=== PATIENT | male | born 1960 | race Caucasian/White ===

== ENCOUNTER 2021-10-28 14:47 | Day surgery (SDC) | payer MEDICARE, OTHER ==
[2021-10-27 11:31] LABS: BASOPHILS % (AUTO) 0.5 % (0-1); EOSINOPHILS # (AUTO) 0.2 X10'3 (0-0.9); EOSINOPHILS % (AUTO) 2.7 % (0-6); HEMATOCRIT 44.4 % (42.0-52.0); HEMOGLOBIN 14.8 g/dl (14.0-17.9); LYMPHOCYTES # (AUTO) 2.3 X10'3 (1.1-4.8); LYMPHOCYTES % (AUTO) 25.1 % (21-51); MEAN CORPUSCULAR HEMOGLOBIN 31.2 PG (27.0-31.0); MEAN CORPUSCULAR HGB CONC 33.3 g/dL (33.0-36.5); MEAN CORPUSCULAR VOLUME 93.7 FL (78-98); MEAN PLATELET VOLUME 8.1 FL (7.4-10.4); MONOCYTES # (AUTO) 0.8 X10'3 (0-0.9); MONOCYTES % (AUTO) 9.1 % (2-12); NEUTROPHILS # (AUTO) 5.8 X10'3 (1.8-7.7); NEUTROPHILS % (AUTO) 62.6 % (42-75); PLATELET COUNT 327 X10'3 (140-440); RED BLOOD COUNT 4.74 X10'6 (4.70-6.10); RED CELL DISTRIBUTION WIDTH 14.5 % (11.5-14.5); WHITE BLOOD COUNT 9.3 X10'3 (4.5-11.0)
[2021-10-27 11:33] LABS: ALBUMIN 3.4 G/DL (3.4-5.0); ANION GAP 13 (8-16); BLOOD UREA NITROGEN 25 MG/DL (7-18); BUN/CREATININE RATIO 20.3 (5.4-32.0); CALCIUM 9.2 MG/DL (8.5-10.1); CHLORIDE 105 MMOL/L (99-107); CREATININE 1.23 MG/DL (0.60-1.10); GLUCOSE 144 MG/DL (70-104); POTASSIUM 4.3 MMOL/L (3.5-5.1); SODIUM 145 MMOL/L (135-145); TOTAL CARBON DIOXIDE 27.2 MMOL/L (24-32); eGFR 59 ML/MIN
[2021-10-27 11:38] LABS: APTT 24 SECONDS (22-32)
[2021-10-28] VITALS (7 sets, daily range): BP systolic 112–147; BP diastolic 62–88
[~2021-10-28] VITALS: Ht 180.3 cm; Wt 110.4 kg
[~2021-10-28 14:47] MED LIST: ALBU8.5H17 IH; ATOR20TA PO; FURO-149 PO; LOSA25TA96 PO; TIOT18CA3 INH
[2021-10-28] MEDS ORDERED: CARV-49 PO (15:28)
[2021-10-28] MEDS ORDERED: ASPI-1265 PO (15:28)
[2021-10-28] MEDS ORDERED: FURO-149 PO (15:33)
[2021-10-28] MEDS ORDERED: POTA-207 PO (15:35)
[2021-10-28] MEDS ORDERED: normal saline 1,000 ML IV SCH (16:05)
[2021-10-28] MEDS ORDERED: diphenhydrAMINE 25mg capsule PO PRN (16:05)
[2021-10-28] MEDS ORDERED: LORazepam 0.5 MG tablet PO PRN (16:05)
[2021-10-28] MEDS ORDERED: LIDOcaine 1% (10mg/ml)w/preservative injection 20ml MDV ONE (17:26)
[2021-10-28] MEDS ORDERED: midazolam 1 mg/ML 2ml injection ONE (17:26)
[2021-10-28] MEDS ORDERED: fentaNYL/PF 50MCG/1 ML 2ML syringe ONE (17:26)
[2021-10-28] MEDS ORDERED: iohexol 350MG/ML 100ml bottle IV ONE (17:27)
[2021-10-28] MEDS ORDERED: iohexol 350 MG/ML 50ML vial IV ONE (18:13)
== END 2021-10-28 20:25 | disposition home or self-care (01) ==
LOC: SSTAY O 14:47
PROVIDERS: ATTEND Internal Medicine Interventional Cardiology
DX: R94.39 Abnormal result of other cardiovascular function study (principal); R07.89 Other chest pain; I25.10 Atherosclerotic heart disease of native coronary artery without angina pectoris; J44.9 Chronic obstructive pulmonary disease, unspecified; I25.2 Old myocardial infarction; I25.5 Ischemic cardiomyopathy; I11.0 Hypertensive heart disease with heart failure; I50.9 Heart failure, unspecified; E78.5 Hyperlipidemia, unspecified; Z79.01 Long term (current) use of anticoagulants; Z79.899 Other long term (current) drug therapy; Z87.891 Personal history of nicotine dependence; Z95.1 Presence of aortocoronary bypass graft
CPT/HCPCS: 36415; 80048; 85025; 85610; 85730; 93005; 93459; 99152; 99153; C1760; C1769; J1644; J2250; J3010; J3490; Q0163; Q9967; A4620; A6258

== ENCOUNTER 2022-05-05 18:46 | Emergency (ER) | payer MEDICARE, MEDICAID ==
[~2022-05-05] VITALS: Ht 177.8 cm; Wt 100.0 kg
[~2022-05-05 18:46] MED LIST changes: +ASPI-1265 PO; +CARV-49 PO; +POTA-207 PO
[2022-05-05 19:03] VITALS: BP 148/71
[2022-05-05 19:24] LABS: BASOPHILS # (AUTO) 0.1 X10'3 (0-0.2); BASOPHILS % (AUTO) 0.5 % (0-1); EOSINOPHILS # (AUTO) 0.5 X10'3 (0-0.9); EOSINOPHILS % (AUTO) 4.1 % (0-6); HEMATOCRIT 46.5 % (42.0-52.0); HEMOGLOBIN 15.3 g/dl (14.0-17.9); LYMPHOCYTES # (AUTO) 2.2 X10'3 (1.1-4.8); LYMPHOCYTES % (AUTO) 18.8 % (21-51); MEAN CORPUSCULAR HGB CONC 32.8 g/dL (33.0-36.5); MEAN CORPUSCULAR VOLUME 94.5 FL (78-98); MEAN PLATELET VOLUME 7.8 FL (7.4-10.4); MONOCYTES # (AUTO) 0.9 X10'3 (0-0.9); MONOCYTES % (AUTO) 7.4 % (2-12); NEUTROPHILS # (AUTO) 8.1 X10'3 (1.8-7.7); NEUTROPHILS % (AUTO) 69.2 % (42-75); PLATELET COUNT 316 X10'3 (140-440); RED BLOOD COUNT 4.93 X10'6 (4.70-6.10); RED CELL DISTRIBUTION WIDTH 15.5 % (11.5-14.5); WHITE BLOOD COUNT 11.7 X10'3 (4.5-11.0)
[2022-05-05 19:36] LABS: ALANINE AMINOTRANSFERASE 23 U/L (12-78); ALBUMIN 3.3 G/DL (3.4-5.0); ALBUMIN/GLOBULIN RATIO 0.7 (1.1-1.5); ALKALINE PHOSPHATASE 121 IU/L (46-116); ANION GAP 10 (8-16); ASPARTATE AMINO TRANSFERASE 17 U/L (10-37); BILIRUBIN,TOTAL 0.2 MG/DL (0.1-1.0); BLOOD UREA NITROGEN 26 MG/DL (7-18); CALCIUM 8.9 MG/DL (8.5-10.1); CHLORIDE 104 MMOL/L (99-107); CREATININE 1.18 MG/DL (0.60-1.10); GLUCOSE 148 MG/DL (70-104); POTASSIUM 4.3 MMOL/L (3.5-5.1); SODIUM 139 MMOL/L (135-145); TOTAL CARBON DIOXIDE 25.4 MMOL/L (24-32); TOTAL PROTEIN 7.9 G/DL (6.4-8.2); eGFR 62 ML/MIN
== END 2022-05-06 01:31 | disposition left against medical advice (07) ==
LOC: ER 18:47
DX: R07.9 Chest pain, unspecified (principal); M54.2 Cervicalgia; Z53.21 Procedure and treatment not carried out due to patient leaving prior to being seen by health care provider
CPT/HCPCS: 36415; 71045; 80053; 83880; 84484; 85025; 93005

== ENCOUNTER 2024-03-10 23:33 | Inpatient (IN) | payer MEDICARE, OTHER ==
[~2024-03-10] VITALS: Ht 175.3 cm; Wt 116.0 kg
[~2024-03-10 23:33] MED LIST changes: +LOSA-415 PO; -LOSA25TA96 PO
[2024-03-10] MEDS: aspirin 81mg tab.chew PO ONE (23:55)
[2024-03-11] VITALS (14 sets, daily range): BP systolic 104–115; BP diastolic 50–67; PULSE 62–92; RESP 15–20; TEMP 97.1–97.8; O2SAT 93–97
[2024-03-11 00:15] LABS: BASOPHILS # (AUTO) 0.1 X10'3 (0-0.2); BASOPHILS % (AUTO) 0.6 % (0-1); EOSINOPHILS # (AUTO) 0.3 X10'3 (0-0.9); EOSINOPHILS % (AUTO) 2.4 % (0-6); HEMATOCRIT 45.2 % (42.0-52.0); HEMOGLOBIN 15.3 g/dl (14.0-17.9); LYMPHOCYTES # (AUTO) 4.1 X10'3 (1.1-4.8); LYMPHOCYTES % (AUTO) 36.5 % (21-51); MEAN CORPUSCULAR HEMOGLOBIN 32.7 PG (27.0-31.0); MEAN CORPUSCULAR HGB CONC 33.8 g/dL (33.0-36.5); MEAN CORPUSCULAR VOLUME 96.8 FL (78-98); MEAN PLATELET VOLUME 8.8 FL (7.4-10.4); NEUTROPHILS # (AUTO) 5.7 X10'3 (1.8-7.7); NEUTROPHILS % (AUTO) 51.5 % (42-75); PLATELET COUNT 242 X10'3 (140-440); RED BLOOD COUNT 4.67 X10'6 (4.70-6.10); WHITE BLOOD COUNT 11.1 X10'3 (4.5-11.0)
[2024-03-11 00:30] LABS: ALBUMIN 3.2 G/DL (3.4-5.0); ANION GAP 12 (8-16); BLOOD UREA NITROGEN 33 MG/DL (7-18); BUN/CREATININE RATIO 20.4 (10.0-20.0); CHLORIDE 104 MMOL/L (99-107); CREATININE 1.62 MG/DL (0.60-1.10); LIPASE 15 U/L (16-77); MAGNESIUM 1.9 MG/DL (1.5-2.4); SODIUM 138 MMOL/L (135-145); TOTAL CARBON DIOXIDE 22.2 MMOL/L (24-32); eCRCL 50 ML/MIN; eGFR 43 ML/MIN
[2024-03-11 00:34] LABS: GLUCOSE 140 MG/DL (70-104)
[2024-03-11] MEDS: nitroGLYCERIN-Tridil 50MG/D5W 250 ML IV PRN (00:34)
[2024-03-11] MEDS: normal saline 1000ML IV soln IVB ONE (00:45)
[2024-03-11] MEDS ORDERED: APIX5TAB3 PO (00:52)
[2024-03-11] MEDS ORDERED: iohexol 350MG/ML 100ml bottle IV ONE (00:58)
[2024-03-11 01:08] LABS: PROTHROMBIN TIME 10.9 SECONDS (9.0-12.0)
[2024-03-11] MEDS ORDERED: magnesium hydroxide 30ml (MOM) UD suspension PO PRN (05:00)
[2024-03-11] MEDS ORDERED: potassium Cl 40MEQ/1/2NS 520ml 520 ML IV PRN (05:00)
[2024-03-11] MEDS ORDERED: magnesium sulf-water 2g/50mL 50 ML IV PRN (05:00)
[2024-03-11] MEDS ORDERED: magnesium sulf-water 4G/100mL 100 ML IV PRN (05:00)
[2024-03-11] MEDS ORDERED: PERFLUTREN PROTEIN-A MICROSPHR (Optison) 0.22 MG/ML 3ML VIAL IV PRN (05:00)
[2024-03-11] MEDS ORDERED: potassium Cl 20 mEq SR tablet PO PRN ×2 (05:00)
[2024-03-11] MEDS ORDERED: acetaminophen 325mg tablet PO PRN (05:00)
[2024-03-11] MEDS ORDERED: ondansetron/PF 4mg/2ml inj IV PRN (05:00)
[2024-03-11] MEDS ORDERED: mag hydrox/Alum hydrox/simeth 30ml oral suspension PO PRN (05:00)
[2024-03-11] MEDS ORDERED: magnesium Cl slow-release 64mg tablet PO PRN (05:00)
[2024-03-11] MEDS: heparin 10,000 units/1 ML INJ IV ONE (05:10)
[2024-03-11] MEDS: MESSAGE TO NURSING IV ONE ×3 (05:11→19:22)
[2024-03-11] MEDS: heparin 25,000 UNIT/250ml bag 250 ML IV PRN (05:11)
[2024-03-11 05:38] LABS: CHOLESTEROL 111 MG/DL (0-200); HDL CHOLESTEROL 28 MG/DL (35-60); LDL CHOLESTEROL 72 MG/DL (50-100); TRIGLYCERIDES 116 MG/DL (20-135)
[2024-03-11 06:15] LABS: HEMOGLOBIN A1C 6.8 % (4.5-6.2)
[2024-03-11] MEDS: K and/or MAG REPLACEMENT MC SCH (07:30)
[2024-03-11] MEDS: ipratropium/albuterol 3ml nebule NEB SCH (07:30)
[2024-03-11] MEDS: losartan 50mg tablet PO SCH (07:49)
[2024-03-11] MEDS: carvedilol 6.25mg tablet PO SCH (07:49)
[2024-03-11] MEDS: docusate sod 100mg capsule PO SCH (07:50)
[2024-03-11] MEDS: heparin 10,000 units/1 ML INJ IV PRN (12:10)
[2024-03-11] MEDS: atorvastatin 20mg tablet PO SCH (20:07)
[2024-03-11] MEDS ORDERED: atorvastatin 20mg tablet PO SCH (21:00)
[2024-03-12] VITALS (18 sets, daily range): BP systolic 92–155; BP diastolic 53–86; PULSE 58–108; RESP 16–25; TEMP 97–97.6; O2SAT 94–98
[2024-03-12] MEDS: MESSAGE TO NURSING IV ONE ×3 (02:35→10:23)
[2024-03-12 05:45] LABS: BASOPHILS # (AUTO) 0.1 X10'3 (0-0.2); BASOPHILS % (AUTO) 0.6 % (0-1); EOSINOPHILS # (AUTO) 0.4 X10'3 (0-0.9); EOSINOPHILS % (AUTO) 4.4 % (0-6); HEMATOCRIT 42.9 % (42.0-52.0); HEMOGLOBIN 14.1 g/dl (14.0-17.9); LYMPHOCYTES # (AUTO) 2.4 X10'3 (1.1-4.8); LYMPHOCYTES % (AUTO) 28.8 % (21-51); MEAN CORPUSCULAR HEMOGLOBIN 31.6 PG (27.0-31.0); MEAN CORPUSCULAR HGB CONC 32.9 g/dL (33.0-36.5); MEAN CORPUSCULAR VOLUME 96.2 FL (78-98); MEAN PLATELET VOLUME 8.3 FL (7.4-10.4); MONOCYTES # (AUTO) 0.7 X10'3 (0-0.9); MONOCYTES % (AUTO) 8.8 % (2-12); NEUTROPHILS # (AUTO) 4.8 X10'3 (1.8-7.7); NEUTROPHILS % (AUTO) 57.4 % (42-75); PLATELET COUNT 195 X10'3 (140-440); RED BLOOD COUNT 4.46 X10'6 (4.70-6.10); RED CELL DISTRIBUTION WIDTH 15.1 % (11.5-14.5); WHITE BLOOD COUNT 8.4 X10'3 (4.5-11.0)
[2024-03-12 05:57] LABS: ALANINE AMINOTRANSFERASE 30 U/L (12-78); ALBUMIN 2.9 G/DL (3.4-5.0); ALBUMIN/GLOBULIN RATIO 0.8 (1.1-1.5); ALKALINE PHOSPHATASE 107 IU/L (46-116); ANION GAP 8 (8-16); ASPARTATE AMINO TRANSFERASE 17 U/L (10-37); BILIRUBIN,TOTAL 0.7 MG/DL (0.1-1.0); BLOOD UREA NITROGEN 25 MG/DL (7-18); BUN/CREATININE RATIO 21.2 (10.0-20.0); CALCIUM 9.3 MG/DL (8.5-10.1); CHLORIDE 107 MMOL/L (99-107); CREATININE 1.18 MG/DL (0.60-1.10); GLUCOSE 117 MG/DL (70-104); POTASSIUM 4.4 MMOL/L (3.5-5.1); SODIUM 139 MMOL/L (135-145); TOTAL CARBON DIOXIDE 23.9 MMOL/L (24-32); TOTAL PROTEIN 6.6 G/DL (6.4-8.2); eCRCL 62 ML/MIN; eGFR 62 ML/MIN
[2024-03-12] MEDS ORDERED: midazolam 1 mg/ML 2ml injection ONE ×2 (10:56→11:38)
[2024-03-12] MEDS ORDERED: LIDOcaine 1% (10mg/ml) 2ml vial ONE (10:56)
[2024-03-12] MEDS ORDERED: iohexol 350MG/ML 100ml bottle IV ONE (10:56)
[2024-03-12] MEDS ORDERED: fentaNYL/PF 50MCG/1 ML 2ML syringe ONE (10:56)
[2024-03-12] MEDS ORDERED: LIDOcaine 1% 30ml preserv. free vial ONE (10:57)
[2024-03-12] MEDS ORDERED: heparin 1,000unit/ml 10ml vial 10 ML ONE (11:47)
[2024-03-12] MEDS ORDERED: clopidogrel 300mg tablet ONE (11:51)
[2024-03-12] MEDS ORDERED: aspirin 325mg tablet ONE (11:51)
[2024-03-12] MEDS ORDERED: HYDROcodone/acetaminophen 5mg/325mg tablet PO PRN (12:55)
[2024-03-12] MEDS: HYDROcodone/acetaminophen 10/325mg tab PO PRN (22:55)
[2024-03-13] VITALS (10 sets, daily range): BP systolic 102–125; BP diastolic 55–68; PULSE 68–86; RESP 14–18; TEMP 97–98.2; O2SAT 95–97
[2024-03-13 07:09] LABS: BASOPHILS % (AUTO) 0.4 % (0-1); EOSINOPHILS # (AUTO) 0.4 X10'3 (0-0.9); EOSINOPHILS % (AUTO) 3.8 % (0-6); HEMATOCRIT 42.7 % (42.0-52.0); HEMOGLOBIN 14.2 g/dl (14.0-17.9); LYMPHOCYTES # (AUTO) 2.6 X10'3 (1.1-4.8); LYMPHOCYTES % (AUTO) 25.7 % (21-51); MEAN CORPUSCULAR HEMOGLOBIN 32.2 PG (27.0-31.0); MEAN CORPUSCULAR HGB CONC 33.2 g/dL (33.0-36.5); MEAN CORPUSCULAR VOLUME 96.8 FL (78-98); MEAN PLATELET VOLUME 8.4 FL (7.4-10.4); MONOCYTES # (AUTO) 0.9 X10'3 (0-0.9); MONOCYTES % (AUTO) 9.4 % (2-12); NEUTROPHILS # (AUTO) 6.1 X10'3 (1.8-7.7); NEUTROPHILS % (AUTO) 60.7 % (42-75); PLATELET COUNT 221 X10'3 (140-440); RED BLOOD COUNT 4.41 X10'6 (4.70-6.10); RED CELL DISTRIBUTION WIDTH 15.1 % (11.5-14.5)
[2024-03-13 07:36] LABS: ALANINE AMINOTRANSFERASE 30 U/L (12-78); ALBUMIN/GLOBULIN RATIO 0.8 (1.1-1.5); ALKALINE PHOSPHATASE 115 IU/L (46-116); ANION GAP 12 (8-16); ASPARTATE AMINO TRANSFERASE 22 U/L (10-37); BILIRUBIN,TOTAL 0.6 MG/DL (0.1-1.0); BLOOD UREA NITROGEN 25 MG/DL (7-18); BUN/CREATININE RATIO 18.5 (10.0-20.0); CALCIUM 9.2 MG/DL (8.5-10.1); CHLORIDE 104 MMOL/L (99-107); CREATININE 1.35 MG/DL (0.60-1.10); GLUCOSE 129 MG/DL (70-104); MAGNESIUM 1.9 MG/DL (1.5-2.4); POTASSIUM 4.2 MMOL/L (3.5-5.1); SODIUM 138 MMOL/L (135-145); TOTAL CARBON DIOXIDE 22.3 MMOL/L (24-32); eCRCL 55 ML/MIN; eGFR 53 ML/MIN
[2024-03-13] MEDS: clopidogrel 75mg tablet PO SCH (08:06)
[2024-03-13] MEDS ORDERED: CLOP-32 PO (12:50)
[2024-03-13] MEDS ORDERED: ASPI-280 PO (12:50)
== END 2024-03-13 15:10 | disposition home or self-care (01) | DRG 321 ==
LOC: ER 23:33 → ED HOLD 03-11 04:59 → PCU 3S 03-11 09:30
PROVIDERS: ADMIT Internal Medicine Critical Care Medicine; ATTEND Family Medicine
PROC: B32T1ZZ Computerized Tomography (CT Scan) of Left Pulmonary Artery using Low Osmolar Contrast (ICD-10-PCS; 2024-03-11)
PROC: B3201ZZ Computerized Tomography (CT Scan) of Thoracic Aorta using Low Osmolar Contrast (ICD-10-PCS; 2024-03-11)
PROC: B32S1ZZ Computerized Tomography (CT Scan) of Right Pulmonary Artery using Low Osmolar Contrast (ICD-10-PCS; 2024-03-11)
PROC: 027035Z Dilation of Coronary Artery, One Artery with Two Drug-eluting Intraluminal Devices, Percutaneous Approach (ICD-10-PCS; principal; 2024-03-12)
PROC: 4A023N7 Measurement of Cardiac Sampling and Pressure, Left Heart, Percutaneous Approach (ICD-10-PCS; 2024-03-12)
PROC: B2111ZZ Fluoroscopy of Multiple Coronary Arteries using Low Osmolar Contrast (ICD-10-PCS; 2024-03-12)
PROC: B2121ZZ Fluoroscopy of Single Coronary Artery Bypass Graft using Low Osmolar Contrast (ICD-10-PCS; 2024-03-12)
PROC: B41F1ZZ Fluoroscopy of Right Lower Extremity Arteries using Low Osmolar Contrast (ICD-10-PCS; 2024-03-12)
DX: I21.4 Non-ST elevation (NSTEMI) myocardial infarction (principal); I50.23 Acute on chronic systolic (congestive) heart failure; N17.0 Acute kidney failure with tubular necrosis; I25.10 Atherosclerotic heart disease of native coronary artery without angina pectoris; I11.0 Hypertensive heart disease with heart failure; I48.91 Unspecified atrial fibrillation; J44.9 Chronic obstructive pulmonary disease, unspecified; E78.00 Pure hypercholesterolemia, unspecified; G89.29 Other chronic pain; I49.3 Ventricular premature depolarization; Z95.1 Presence of aortocoronary bypass graft
CPT/HCPCS: 93306; 93459; 96365; 99285; C9600; 36415; 71045; 71275; 74174; 80048; 80053; 80061; 83036; 83690; 83735; 84484; 85025; 85347; 85610; 85730; 87081; 93005; 94640; 94760; 99152; 99153; A6258; C1725; C1751; C1760; C1769; C1874; G0378; J1644; J2250; J3010; J3490; J7030; Q9967

== ENCOUNTER 2024-10-02 13:39 | Emergency (ER) | payer MEDICARE, OTHER ==
[~2024-10-02] VITALS: Ht 177.8 cm; Wt 104.5 kg
[~2024-10-02 13:39] MED LIST changes: +APIX5TAB3 PO; -ASPI-1265 PO; +CLOP-32 PO; -FURO-149 PO; -POTA-207 PO; -TIOT18CA3 INH
[2024-10-02] MEDS: methylPREDNISolone sod succ 125mg/2ml vial IV ONE (14:38)
[2024-10-02 14:41] LABS: BASOPHILS # (AUTO) 0.1 X10'3 (0-0.2); BASOPHILS % (AUTO) 0.6 % (0-1); EOSINOPHILS # (AUTO) 0.1 X10'3 (0-0.9); EOSINOPHILS % (AUTO) 1.5 % (0-6); HEMATOCRIT 43.8 % (42.0-52.0); HEMOGLOBIN 14.6 g/dl (14.0-17.9); LYMPHOCYTES # (AUTO) 2.4 X10'3 (1.1-4.8); LYMPHOCYTES % (AUTO) 29.9 % (21-51); MEAN CORPUSCULAR HGB CONC 33.3 g/dL (33.0-36.5); MEAN CORPUSCULAR VOLUME 99.1 FL (78-98); MEAN PLATELET VOLUME 8.3 FL (7.4-10.4); MONOCYTES % (AUTO) 12.4 % (2-12); NEUTROPHILS # (AUTO) 4.4 X10'3 (1.8-7.7); NEUTROPHILS % (AUTO) 55.6 % (42-75); PLATELET COUNT 275 X10'3 (140-440); RED BLOOD COUNT 4.42 X10'6 (4.70-6.10); RED CELL DISTRIBUTION WIDTH 15.6 % (11.5-14.5)
[2024-10-02 14:55] LABS: ALANINE AMINOTRANSFERASE 29 U/L (12-78); ALBUMIN 3.5 G/DL (3.4-5.0); ALBUMIN/GLOBULIN RATIO 0.8 (1.1-1.5); ALKALINE PHOSPHATASE 132 IU/L (46-116); ANION GAP 9 (8-16); ASPARTATE AMINO TRANSFERASE 21 U/L (10-37); BILIRUBIN,TOTAL 0.6 MG/DL (0.1-1.0); BLOOD UREA NITROGEN 34 MG/DL (7-18); BUN/CREATININE RATIO 23.6 (10.0-20.0); CALCIUM 9.1 MG/DL (8.5-10.1); CHLORIDE 106 MMOL/L (99-107); CREATININE 1.44 MG/DL (0.60-1.10); GLUCOSE 118 MG/DL (70-104); POTASSIUM 4.3 MMOL/L (3.5-5.1); SODIUM 139 MMOL/L (135-145); TOTAL CARBON DIOXIDE 24.2 MMOL/L (24-32); TOTAL PROTEIN 7.7 G/DL (6.4-8.2); eCRCL 53 ML/MIN; eGFR 49 ML/MIN
[2024-10-02 15:03] LABS: PRO BRAIN NATRIURETIC PEPTIDE 2992 PG/ML (0-125)
[2024-10-02] MEDS: ipratropium/albuterol 3ml nebule NEB STA ×2 (15:13→15:14)
[2024-10-02 15:14] VITALS: PULSE 78; RESP 21; O2SAT 97
[2024-10-02 15:25] VITALS: PULSE 77; RESP 22; O2SAT 94
[2024-10-02] MEDS: oseltamivir phos 75mg capsule PO ONE (17:38)
[2024-10-02] MEDS ORDERED: PRED20TA PO (17:57)
[2024-10-02] MEDS ORDERED: ALBU8HFA INH (17:57)
[2024-10-02] MEDS ORDERED: TAM75C PO (17:58)
[2024-10-02 18:39] VITALS: TEMP 98.9; O2SAT 97
[2024-10-02 18:42] VITALS: BP 128/67; PULSE 85; RESP 20
== END 2024-10-02 18:45 | disposition home or self-care (01) ==
LOC: ER 13:40
DX: J10.1 Influenza due to other identified influenza virus with other respiratory manifestations (principal); I11.0 Hypertensive heart disease with heart failure; I50.9 Heart failure, unspecified; J44.9 Chronic obstructive pulmonary disease, unspecified; I25.10 Atherosclerotic heart disease of native coronary artery without angina pectoris; M19.90 Unspecified osteoarthritis, unspecified site; E78.00 Pure hypercholesterolemia, unspecified; I48.91 Unspecified atrial fibrillation
CPT/HCPCS: 36415; 71045; 80053; 83605; 83880; 84484; 85025; 87040; 87502; 87503; 93005; 94640; 96374; 99285; J2919; 94760

== ENCOUNTER 2024-11-16 09:29 | Emergency (ER) | payer MEDICARE, OTHER ==
[~2024-11-16] VITALS: Ht 177.8 cm; Wt 103.6 kg
[2024-11-16 09:48] VITALS: TEMP 98
[2024-11-16 10:37] VITALS: BP 105/63; PULSE 73; RESP 16; O2SAT 97
== END 2024-11-16 10:38 | disposition home or self-care (01) ==
LOC: ER 09:30
DX: H11.32 Conjunctival hemorrhage, left eye (principal); E78.00 Pure hypercholesterolemia, unspecified; I10 Essential (primary) hypertension; I25.10 Atherosclerotic heart disease of native coronary artery without angina pectoris; I48.91 Unspecified atrial fibrillation; J44.9 Chronic obstructive pulmonary disease, unspecified; M19.90 Unspecified osteoarthritis, unspecified site
CPT/HCPCS: 99281